=== PATIENT | female | born 1970 | race Caucasian/White ===

== ENCOUNTER → 2022-02-19 | Outpatient (CLI) | payer BC | LOC: KOH-I 09:09 | DX: S92.353A Displaced fracture of fifth metatarsal bone, unspecified foot, initial encounter for closed fracture (principal) | CPT/HCPCS: 73630 ==

== ENCOUNTER → 2022-03-05 | Outpatient (CLI) | payer BC | LOC: KOH-I 09:02 | DX: S92.352D Displaced fracture of fifth metatarsal bone, left foot, subsequent encounter for fracture with routine healing (principal); X58.XXXD Exposure to other specified factors, subsequent encounter | CPT/HCPCS: 73630 ==

== ENCOUNTER → 2022-04-02 | Outpatient (CLI) | payer BC | LOC: KOH-I 15:51 | DX: S92.352D Displaced fracture of fifth metatarsal bone, left foot, subsequent encounter for fracture with routine healing (principal) | CPT/HCPCS: 73630 ==

== ENCOUNTER → 2022-05-07 | Outpatient (CLI) | payer BC | LOC: KOH-I 16:05 | DX: S92.352D Displaced fracture of fifth metatarsal bone, left foot, subsequent encounter for fracture with routine healing (principal) | CPT/HCPCS: 73630 ==